=== PATIENT | male | born 1965 | race Caucasian/White ===

== ENCOUNTER → 2017-08-25 | Outpatient (CLI) | payer OTHER ==
[~2017-08-25] MED LIST: DIATRIZOATE MEGL/DIATRIZOA SOD 30 ML BTL PO ONE; HYDROCHLOROTHIAZIDE PO; LISINOPRIL-HCT1 EACH PO
[2017-08-25 16:48] LABS: BLOOD UREA NITROGEN 9 mg/dL (7-26); BUN/CREATININE RATIO 12 (6-25); CREATININE, SERUM 0.74 mg/dL (0.72-1.25); EST GLOMERULAR FILTRATION RATE > 60 ML/MIN (60-)
--- NOTE | 2017-08-25 18:02 | Diagnostic Imaging Report ---
PROCEDURE: CT ABDOMEN AND PELVIS WITHOUT CONTRAST TECHNIQUE: The abdomen and pelvis were scanned utilizing a multidetector helical scanner from the diaphragm to the lesser trochanter after the oral administration of Gastrografin/water. No IV contrast was administered. Coronal and sagittal multiplanar reformations were obtained. COMPARISON: None. INDICATIONS: LEFT LOWER QUADRANT PAIN FINDINGS: ABSENCE OF INTRAVENOUS CONTRAST DECREASES SENSITIVITY FOR DETECTION OF FOCAL LESIONS AND VASCULAR PATHOLOGY. LOWER THORAX: Normal. HEPATOBILIARY: No focal hepatic lesions. No biliary ductal dilatation. SPLEEN: No splenomegaly. PANCREAS: No focal masses or ductal dilatation. ADRENALS: No adrenal nodules. KIDNEYS/URETERS: No hydronephrosis, stones, or solid mass lesions. Subcentimeter hypodensity in the interpolar region of the left kidney (series 2, image 44) may represent a cyst. Mild bilateral perinephric stranding is nonspecific. PELVIC ORGANS/BLADDER: Unremarkable. PERITONEUM / RETROPERITONEUM: No free air or fluid. LYMPH NODES: No lymphadenopathy. VESSELS: Mild atherosclerotic calcifications of the aorta and its branches. GI TRACT: No evidence of bowel obstruction. There are scattered sigmoid diverticula. There is a subtle focus of stranding around the sigmoid colon in the left lower quadrant (series 2, image 59). The appendix is normal. BONES AND SOFT TISSUES: Scattered sclerotic osseous lesions in the pelvis are likely benign hormones. Multilevel spondylosis of the thoracic and lumbar shunt. IMPRESSION: Sigmoid diverticulosis. There is a subtle focus of stranding around the sigmoid colon in the left lower quadrant. This could represent mild diverticulitis. This was discussed with Janny Wheat at 6:03 pm on 08/25/2017. Dictated by: Garland Rosen M.D. on 08/25/2017 at 18:03 Electronically approved by: Garland Rosen M.D. on 08/25/2017 at 18:03
== END ==
LOC: CT 15:26
PROVIDERS: ATTEND Family Medicine
DX: R10.32 Left lower quadrant pain (principal)
CPT/HCPCS: 36415; 74176; 82565; 84520

== ENCOUNTER → 2020-04-29 | Day surgery (SDC) | payer OTHER ==
[~2020-04-29] MED LIST changes: -DIATRIZOATE MEGL/DIATRIZOA SOD 30 ML BTL PO ONE; +EPHEDRINE SULFATE INJ 50 MG/ML VIAL ONE; +FENTANYL CITRATE/PF 100MCG/2 ML INJ ONE; +HYOSCYAMINE 0.125 MG TAB ONE; +KETAMINE HCL INJ 50 MG/ML 10 ML VIAL ONE; +LIDOCAINE HCL 2% LOCAL INJ 5 ML SDV VIAL INJ ONE; +MIDAZOLAM HCL 2 MG/2 ML VIAL ONE; +PHENYLEPHRINE HCL 1% 10 MG/ML VIAL ONE; +PROPOFOL IV EMULSION 10 MG/ML 20 ML VIAL ONE; +SIMETHICONE 40 MG/0.6 ML BTL ONE
[2020-04-29 15:11] VITALS: BP 115/74
== END | disposition home or self-care (01) ==
LOC: OR 10:20
PROVIDERS: ATTEND Internal Medicine Gastroenterology
DX: Z09 Encounter for follow-up examination after completed treatment for conditions other than malignant neoplasm (principal); K62.1 Rectal polyp; K57.30 Diverticulosis of large intestine without perforation or abscess without bleeding; K64.8 Other hemorrhoids; I10 Essential (primary) hypertension; Z01.810 Encounter for preprocedural cardiovascular examination; Z01.812 Encounter for preprocedural laboratory examination; Z20.828 Contact with and (suspected) exposure to other viral communicable diseases; Z68.37 Body mass index [BMI] 37.0-37.9, adult; Z86.010 Personal history of colon polyps
CPT/HCPCS: 45384; 93005; J2001; J2250; J2370; J2704; J3010; U0002; 45378; 45385

== ENCOUNTER 2020-05-02 15:33 | Emergency (ER) | payer OTHER ==
[~2020-05-02] VITALS: Ht 190.5 cm; Wt 127.0 kg
[~2020-05-02 15:33] MED LIST changes: -EPHEDRINE SULFATE INJ 50 MG/ML VIAL ONE; -FENTANYL CITRATE/PF 100MCG/2 ML INJ ONE; -HYOSCYAMINE 0.125 MG TAB ONE; -KETAMINE HCL INJ 50 MG/ML 10 ML VIAL ONE; -LIDOCAINE HCL 2% LOCAL INJ 5 ML SDV VIAL INJ ONE; -MIDAZOLAM HCL 2 MG/2 ML VIAL ONE; -PHENYLEPHRINE HCL 1% 10 MG/ML VIAL ONE; -PROPOFOL IV EMULSION 10 MG/ML 20 ML VIAL ONE; -SIMETHICONE 40 MG/0.6 ML BTL ONE
== END 2020-05-02 16:21 | disposition home or self-care (01) ==
LOC: ER 16:04
DX: J02.9 Acute pharyngitis, unspecified (principal); I10 Essential (primary) hypertension
CPT/HCPCS: 99283